=== PATIENT | male | born 1960 | race American Indian/Alaskan Native ===

== ENCOUNTER 2016-05-30 11:39 | Outpatient (CLI) | payer MEDICARE ==
[2016-05-30 11:59] LABS: Hematocrit 41.1 % (35.5-45.6); Hemoglobin 13.4 gm/dl (11.8-15.2); Mean Corpuscular HGB Conc 33 % (32-34); Mean Corpuscular Hemoglobin 29 pg (28-32); Mean Corpuscular Volume 91 fl (84-94); Platelet Count 263 K/mm3 (140-440); Red Blood Count 4.54 M/mm3 (3.65-5.03); Red Cell Distribution Width 14.3 % (13.2-15.2); White Blood Count 9.9 K/mm3 (4.5-11.0)
[2016-05-30 12:15] LABS: Alanine Aminotransferase 17 units/L (7-56); Albumin 4.4 g/dL (3.9-5); Albumin/Globulin Ratio 1.4 %; Alkaline Phosphatase 93 units/L (35-129); Anion Gap 22 mmol/L; BUN/Creatinine Ratio 11.42; Bilirubin,Total 0.4 mg/dL (0.1-1.2); Blood Urea Nitrogen 16 mg/dL (9-20); Calcium 8.3 mg/dL (8.4-10.2); Carbon Dioxide 24 mmol/L (22-30); Chloride 101.2 mmol/L (98-107); Cholesterol 193 mg/dL (50-199); Glucose 67 mg/dL (75-100); HDL Cholesterol 52 mg/dL (40-59); LDL Cholesterol,Direct 118 mg/dL (50-130); Potassium 3.4 mmol/L (3.6-5.0); Sodium 144 mmol/L (137-145); Total Protein 7.6 g/dL (6.3-8.2); Triglycerides 119 mg/dL (2-149)
== END 2016-05-30 11:40 | disposition home or self-care (01) ==
LOC: LAB 11:39
DX: I12.9 Hypertensive chronic kidney disease with stage 1 through stage 4 chronic kidney disease, or unspecified chronic kidney disease (principal); N18.3 Chronic kidney disease, stage 3 (moderate); E11.22 Type 2 diabetes mellitus with diabetic chronic kidney disease; D63.1 Anemia in chronic kidney disease; E78.1 Pure hyperglyceridemia; R06.83 Snoring; Z94.0 Kidney transplant status
CPT/HCPCS: 36415; 80053; 80061; 80197; 83036; 85027

== ENCOUNTER 2016-08-12 12:45 | Outpatient (CLI) | payer MEDICARE ==
[2016-08-12 14:13] LABS: Basophils % (Auto) 0.8 % (0.0-1.8); Eosinophils % (Auto) 4.6 % (0.0-4.3); Hematocrit 36.4 % (35.5-45.6); Hemoglobin 11.6 gm/dl (11.8-15.2); Mean Corpuscular HGB Conc 32 % (32-34); Mean Corpuscular Hemoglobin 28 pg (28-32); Mean Corpuscular Volume 87 fl (84-94); Platelet Count 270 K/mm3 (140-440); Red Blood Count 4.16 M/mm3 (3.65-5.03); Red Cell Distribution Width 14.8 % (13.2-15.2); White Blood Count 11.4 K/mm3 (4.5-11.0)
[2016-08-12 14:24] LABS: Alanine Aminotransferase 20 units/L (7-56); Albumin 4.1 g/dL (3.9-5); Albumin/Globulin Ratio 1.5 %; Alkaline Phosphatase 123 units/L (35-129); Anion Gap 18 mmol/L; BUN/Creatinine Ratio 12.85; Bilirubin,Total 0.3 mg/dL (0.1-1.2); Blood Urea Nitrogen 18 mg/dL (9-20); Calcium 6.9 mg/dL (8.4-10.2); Carbon Dioxide 24 mmol/L (22-30); Chloride 102.6 mmol/L (98-107); Glucose 109 mg/dL (75-100); Potassium 3.9 mmol/L (3.6-5.0); Sodium 141 mmol/L (137-145); Total Protein 6.9 g/dL (6.3-8.2)
[2016-08-12 14:44] LABS: Cholesterol 182 mg/dL (50-199); HDL Cholesterol 42 mg/dL (40-59); LDL Cholesterol,Direct 110 mg/dL (50-130); Triglycerides 150 mg/dL (2-149)
== END 2016-08-12 12:46 | disposition home or self-care (01) ==
LOC: LAB 12:45
PROVIDERS: ATTEND Specialist
DX: E11.65 Type 2 diabetes mellitus with hyperglycemia (principal); I10 Essential (primary) hypertension; E11.22 Type 2 diabetes mellitus with diabetic chronic kidney disease
CPT/HCPCS: 36415; 80053; 80061; 80197; 83036; 85025

== ENCOUNTER 2016-10-22 09:22 | Outpatient (CLI) | payer MEDICARE ==
[2016-10-22 09:43] LABS: Hemoglobin 11.8 gm/dl (11.8-15.2); Mean Corpuscular HGB Conc 32 % (32-34); Mean Corpuscular Hemoglobin 28 pg (28-32); Mean Corpuscular Volume 86 fl (84-94); Platelet Count 253 K/mm3 (140-440); Red Blood Count 4.29 M/mm3 (3.65-5.03); Red Cell Distribution Width 14.8 % (13.2-15.2); White Blood Count 9.7 K/mm3 (4.5-11.0)
[2016-10-22 10:05] LABS: Albumin 4.1 g/dL (3.9-5); Albumin/Globulin Ratio 1.5 %; Bilirubin,Total 0.3 mg/dL (0.1-1.2); Calcium 6.7 mg/dL (8.4-10.2); Chloride 100.9 mmol/L (98-107); Total Protein 6.8 g/dL (6.3-8.2)
== END 2016-10-22 09:23 | disposition home or self-care (01) ==
LOC: LAB 09:22
DX: I12.9 Hypertensive chronic kidney disease with stage 1 through stage 4 chronic kidney disease, or unspecified chronic kidney disease (principal); E11.22 Type 2 diabetes mellitus with diabetic chronic kidney disease; E11.21 Type 2 diabetes mellitus with diabetic nephropathy; E83.51 Hypocalcemia; N18.9 Chronic kidney disease, unspecified; D63.1 Anemia in chronic kidney disease; E78.1 Pure hyperglyceridemia; R06.83 Snoring
CPT/HCPCS: 36415; 80053; 80197; 85027

== ENCOUNTER 2017-04-20 08:49 | Outpatient (CLI) | payer MEDICARE ==
[2017-04-20 09:02] LABS: Mean Corpuscular HGB Conc 30 % (32-34); Mean Corpuscular Volume 73 fl (84-94); Platelet Count 403 K/mm3 (140-440); Red Blood Count 3.79 M/mm3 (3.65-5.03); Red Cell Distribution Width 17.3 % (13.2-15.2); White Blood Count 14.1 K/mm3 (4.5-11.0)
[2017-04-20 09:09] LABS: Hematocrit 27.6 % (35.5-45.6); Hemoglobin 8.2 gm/dl (11.8-15.2); Mean Corpuscular Hemoglobin 22 pg (28-32)
[2017-04-20 09:17] LABS: Albumin/Globulin Ratio 1.5 %; Bilirubin,Total 0.3 mg/dL (0.1-1.2); Calcium 6.6 mg/dL (8.4-10.2); Chloride 100.7 mmol/L (98-107); Potassium 3.9 mmol/L (3.6-5.0); Total Protein 6.7 g/dL (6.3-8.2)
[2017-04-20 09:35] LABS: Bilirubin,Urine NEG (Negative); Blood,Urine NEG (Negative); Ketones,Urine NEG (Negative); Leukocyte Esterase,Urine NEG (Negative); Mucus,Urine FEW /HPF; Nitrite,Urine NEG (Negative); Urobilinogen,Urine < 2.0 mg/dL (<2.0)
== END 2017-04-20 08:50 | disposition home or self-care (01) ==
LOC: LAB 08:49
DX: I13.2 Hypertensive heart and chronic kidney disease with heart failure and with stage 5 chronic kidney disease, or end stage renal disease (principal); N18.6 End stage renal disease; I50.9 Heart failure, unspecified; D63.1 Anemia in chronic kidney disease; E11.21 Type 2 diabetes mellitus with diabetic nephropathy; E11.22 Type 2 diabetes mellitus with diabetic chronic kidney disease; E83.51 Hypocalcemia; Z94.0 Kidney transplant status
CPT/HCPCS: 36415; 80053; 80197; 81001; 82043; 85027

== ENCOUNTER 2017-05-03 11:24 | Emergency (ER) | payer MEDICARE ==
[2017-05-03] MEDS ORDERED: NACL 0.9% 500 ML 500 ML IV ONE (12:06)
[2017-05-03 12:12] VITALS: BP 110/68
--- NOTE | 2017-05-03 13:22 | XRay Report ---
ROUTINE CHEST, TWO VIEWS: HISTORY: Sepsis. The trachea, heart, mediastinal contour, lung arzola and bony thorax are unremarkable. No significant change since 07/26/16. IMPRESSION: No acute cardiopulmonary process identified.
[2017-05-03 13:39] LABS: Basophils % (Auto) 1.3 % (0.0-1.8); Eosinophils % (Auto) 8.2 % (0.0-4.3); Mean Corpuscular HGB Conc 29 % (32-34); Mean Corpuscular Volume 72 fl (84-94); Platelet Count 339 K/mm3 (140-440); Red Cell Distribution Width 18.6 % (13.2-15.2); White Blood Count 14.8 K/mm3 (4.5-11.0)
[2017-05-03 13:52] LABS: Hematocrit 26.5 % (35.5-45.6); Hemoglobin 7.8 gm/dl (11.8-15.2); INR 1.93 (0.87-1.13); Mean Corpuscular Hemoglobin 21 pg (28-32)
[2017-05-03 14:00] LABS: Albumin 3.9 g/dL (3.9-5); Albumin/Globulin Ratio 1.5 %; Bilirubin,Total 0.4 mg/dL (0.1-1.2); Calcium 6.4 mg/dL (8.4-10.2); Chloride 102.4 mmol/L (98-107); Potassium 4.5 mmol/L (3.6-5.0); Total Protein 6.5 g/dL (6.3-8.2)
[2017-05-03 15:02] LABS: Bilirubin,Urine NEG (Negative); Blood,Urine NEG (Negative); Ketones,Urine NEG (Negative); Leukocyte Esterase,Urine NEG (Negative); Mucus,Urine FEW /HPF; Nitrite,Urine NEG (Negative); Urobilinogen,Urine < 2.0 mg/dL (<2.0)
== END 2017-05-03 21:45 | disposition left against medical advice (07) ==
LOC: ED 11:24
DX: R10.9 Unspecified abdominal pain (principal); Z53.21 Procedure and treatment not carried out due to patient leaving prior to being seen by health care provider
CPT/HCPCS: 36415; 71020; 80053; 81001; 82140; 82805; 82962; 83880; 85025; 85610; 87040; 87086; 93005; 93010

== ENCOUNTER 2017-06-17 11:27 | Outpatient (CLI) | payer MEDICARE ==
[2017-06-17 12:04] LABS: Hematocrit 34.3 % (35.5-45.6); Hemoglobin 10.7 gm/dl (11.8-15.2); Mean Corpuscular HGB Conc 31 % (32-34); Mean Corpuscular Volume 83 fl (84-94); Platelet Count 325 K/mm3 (140-440); Red Blood Count 4.13 M/mm3 (3.65-5.03)
[2017-06-17 12:08] LABS: Mean Corpuscular Hemoglobin 26 pg (28-32); Red Cell Distribution Width 29.1 % (13.2-15.2)
[2017-06-17 12:25] LABS: Creatinine,Urine 339.3 mg/dL (0.1-20.0); Microalbumin/Creatinine Ratio 10.6 ug/mg
[2017-06-17 12:33] LABS: Albumin 4.2 g/dL (3.9-5); Calcium 7.2 mg/dL (8.4-10.2); Magnesium 1.9 mg/dL (1.7-2.3)
== END 2017-06-17 11:28 | disposition home or self-care (01) ==
LOC: LAB 11:27
DX: I13.0 Hypertensive heart and chronic kidney disease with heart failure and stage 1 through stage 4 chronic kidney disease, or unspecified chronic kidney disease (principal); N18.9 Chronic kidney disease, unspecified; I50.9 Heart failure, unspecified; E11.22 Type 2 diabetes mellitus with diabetic chronic kidney disease; D63.1 Anemia in chronic kidney disease; E83.51 Hypocalcemia; E78.1 Pure hyperglyceridemia; R06.83 Snoring; Z94.0 Kidney transplant status
CPT/HCPCS: 36415; 80053; 80197; 82043; 83735; 85027

== ENCOUNTER 2017-09-16 07:51 | Outpatient (CLI) | payer MEDICARE ==
[2017-09-16 08:15] LABS: Bilirubin,Urine NEG (Negative); Blood,Urine NEG (Negative); Color,Urine Yellow (Yellow); Protein,Urine <15 mg/dL mg/dL (Negative); Urobilinogen,Urine < 2.0 mg/dL (<2.0)
[2017-09-16 08:24] LABS: Hematocrit 37.6 % (35.5-45.6); Hemoglobin 12.5 gm/dl (11.8-15.2); Mean Corpuscular HGB Conc 33 % (32-34); Mean Corpuscular Hemoglobin 29 pg (28-32); Mean Corpuscular Volume 87 fl (84-94); Platelet Count 268 K/mm3 (140-440); Red Blood Count 4.32 M/mm3 (3.65-5.03); Red Cell Distribution Width 16.3 % (13.2-15.2)
[2017-09-16 08:35] LABS: Albumin 4.1 g/dL (3.9-5); Calcium 7.3 mg/dL (8.4-10.2)
== END 2017-09-16 07:52 | disposition home or self-care (01) ==
LOC: LAB 07:51
DX: I13.0 Hypertensive heart and chronic kidney disease with heart failure and stage 1 through stage 4 chronic kidney disease, or unspecified chronic kidney disease (principal); I50.9 Heart failure, unspecified; N18.9 Chronic kidney disease, unspecified; E11.22 Type 2 diabetes mellitus with diabetic chronic kidney disease; E11.21 Type 2 diabetes mellitus with diabetic nephropathy; D63.1 Anemia in chronic kidney disease; E78.6 Lipoprotein deficiency; E83.51 Hypocalcemia; R80.0 Isolated proteinuria; Z94.0 Kidney transplant status
CPT/HCPCS: 36415; 80053; 80197; 81001; 85027

== ENCOUNTER 2017-12-14 10:27 | Outpatient (CLI) | payer MEDICARE ==
[2017-12-14 11:06] LABS: Hematocrit 39.3 % (35.5-45.6); Hemoglobin 13.5 gm/dl (11.8-15.2); Mean Corpuscular HGB Conc 34 % (32-34); Mean Corpuscular Hemoglobin 30 pg (28-32); Mean Corpuscular Volume 87 fl (84-94); Platelet Count 255 K/mm3 (140-440); Red Blood Count 4.51 M/mm3 (3.65-5.03); Red Cell Distribution Width 14.8 % (13.2-15.2)
[2017-12-14 11:31] LABS: BUN/Creatinine Ratio 14; Blood Urea Nitrogen 19 mg/dL (9-20); Calcium 8.1 mg/dL (8.4-10.2)
[2017-12-14 11:32] LABS: Alanine Aminotransferase 15 units/L (7-56); Albumin 4.4 g/dL (3.9-5); Chol/HDL Ratio 3.33 %; HDL Cholesterol 42 mg/dL (40-59); Hemolysis Index 6; LDL Cholesterol,Direct 90 mg/dL (50-130)
== END 2017-12-14 10:28 | disposition home or self-care (01) ==
LOC: LAB 10:27
DX: I13.0 Hypertensive heart and chronic kidney disease with heart failure and stage 1 through stage 4 chronic kidney disease, or unspecified chronic kidney disease (principal); E11.22 Type 2 diabetes mellitus with diabetic chronic kidney disease; N18.9 Chronic kidney disease, unspecified; I50.32 Chronic diastolic (congestive) heart failure; D63.1 Anemia in chronic kidney disease; E11.21 Type 2 diabetes mellitus with diabetic nephropathy; E11.65 Type 2 diabetes mellitus with hyperglycemia; E78.2 Mixed hyperlipidemia; E83.51 Hypocalcemia; R80.0 Isolated proteinuria; Z94.0 Kidney transplant status
CPT/HCPCS: 36415; 80053; 80061; 80197; 83036; 85027

== ENCOUNTER 2018-07-20 11:38 | Outpatient (CLI) | payer MEDICARE ==
[2018-07-20 12:05] LABS: Basophils # (Auto) 0.1 K/mm3 (0.0-0.1); Basophils % (Auto) 0.7 % (0.0-1.8); Eosinophils # (Auto) 1.8 K/mm3 (0.0-0.4); Eosinophils % (Auto) 14.9 % (0.0-4.3); Hematocrit 43.2 % (35.5-45.6); Hemoglobin 14.1 gm/dl (11.8-15.2); Lymphocytes # (Auto) 2.3 K/mm3 (1.2-5.4); Lymphocytes % (Auto) 19.3 % (13.4-35.0); Mean Corpuscular HGB Conc 33 % (32-34); Mean Corpuscular Volume 90 fl (84-94); Monocytes # (Auto) 1.4 K/mm3 (0.0-0.8); Monocytes % (Auto) 11.6 % (0.0-7.3); Platelet Count 267 K/mm3 (140-440); Red Blood Count 4.78 M/mm3 (3.65-5.03); Red Cell Distribution Width 14.7 % (13.2-15.2)
[2018-07-20 12:07] LABS: Bilirubin,Urine NEG (Negative); Blood,Urine NEG (Negative); Color,Urine Yellow (Yellow); Mucus,Urine FEW /HPF; Urobilinogen,Urine < 2.0 mg/dL (<2.0); WBC,Urine < 1.0 /HPF (0.0-6.0)
[2018-07-20 12:24] LABS: Creatinine,Urine 308.7 mg/dL (0.1-20.0)
[2018-07-20 12:32] LABS: Albumin 4.1 g/dL (3.9-5); Calcium 7.8 mg/dL (8.4-10.2); Uric Acid 6.4 mg/dL (3.5-7.6)
== END 2018-07-20 11:39 | disposition home or self-care (01) ==
LOC: LAB 11:38
PROVIDERS: ATTEND Internal Medicine Nephrology
DX: E11.21 Type 2 diabetes mellitus with diabetic nephropathy (principal); I13.0 Hypertensive heart and chronic kidney disease with heart failure and stage 1 through stage 4 chronic kidney disease, or unspecified chronic kidney disease; I50.32 Chronic diastolic (congestive) heart failure; E11.22 Type 2 diabetes mellitus with diabetic chronic kidney disease; N18.9 Chronic kidney disease, unspecified; D63.1 Anemia in chronic kidney disease; R80.0 Isolated proteinuria; E83.51 Hypocalcemia; Z94.0 Kidney transplant status
CPT/HCPCS: 36415; 80053; 80197; 81001; 82043; 82306; 83970; 84550; 85025

== ENCOUNTER 2018-08-02 15:04 | Outpatient (CLI) | payer MEDICARE | END 2018-08-02 15:05 | disposition home or self-care (01) | LOC: LAB 15:04 | PROVIDERS: ATTEND Internal Medicine Nephrology | DX: E11.21 Type 2 diabetes mellitus with diabetic nephropathy (principal); E83.51 Hypocalcemia; I11.0 Hypertensive heart disease with heart failure; I50.32 Chronic diastolic (congestive) heart failure; E78.1 Pure hyperglyceridemia; R80.0 Isolated proteinuria; E78.5 Hyperlipidemia, unspecified; E78.00 Pure hypercholesterolemia, unspecified; K21.9 Gastro-esophageal reflux disease without esophagitis; Z94.0 Kidney transplant status | CPT/HCPCS: 36415; 80197 ==

== ENCOUNTER 2018-11-01 13:09 | Outpatient (CLI) | payer MEDICARE | END 2018-11-01 13:10 | disposition home or self-care (01) | LOC: LAB 13:09 | PROVIDERS: ATTEND Internal Medicine Nephrology | DX: E11.21 Type 2 diabetes mellitus with diabetic nephropathy (principal); I11.0 Hypertensive heart disease with heart failure; I50.32 Chronic diastolic (congestive) heart failure; E83.51 Hypocalcemia; E78.1 Pure hyperglyceridemia; D63.1 Anemia in chronic kidney disease; E66.9 Obesity, unspecified; E78.00 Pure hypercholesterolemia, unspecified; K21.9 Gastro-esophageal reflux disease without esophagitis; Z94.0 Kidney transplant status; Z71.3 Dietary counseling and surveillance | CPT/HCPCS: 36415; 80197 ==

== ENCOUNTER 2019-01-19 10:57 | Outpatient (CLI) | payer MEDICARE ==
[2019-01-19 11:17] LABS: Basophils # (Auto) 0.1 K/mm3 (0.0-0.1); Basophils % (Auto) 1.1 % (0.0-1.8); Eosinophils # (Auto) 1.2 K/mm3 (0.0-0.4); Eosinophils % (Auto) 10.2 % (0.0-4.3); Hematocrit 39.9 % (35.5-45.6); Hemoglobin 13.2 gm/dl (11.8-15.2); Lymphocytes # (Auto) 1.8 K/mm3 (1.2-5.4); Lymphocytes % (Auto) 15.9 % (13.4-35.0); Mean Corpuscular HGB Conc 33 % (32-34); Mean Corpuscular Volume 91 fl (84-94); Monocytes # (Auto) 1.1 K/mm3 (0.0-0.8); Monocytes % (Auto) 9.9 % (0.0-7.3); Platelet Count 277 K/mm3 (140-440); Red Cell Distribution Width 14.4 % (13.2-15.2)
[2019-01-19 11:44] LABS: Albumin 4.1 g/dL (3.9-5)
[2019-01-19 11:49] LABS: Bilirubin,Urine NEG (Negative); Blood,Urine NEG (Negative); Color,Urine Yellow (Yellow); Urobilinogen,Urine < 2.0 mg/dL (<2.0)
[2019-01-19 12:04] LABS: Creatinine,Urine 304.5 mg/dL (0.1-20.0); Protein/Creatinine Ratio,Urine 0.13
== END 2019-01-20 09:18 | disposition home or self-care (01) ==
LOC: LAB 10:57
PROVIDERS: ATTEND Internal Medicine Nephrology
DX: E11.21 Type 2 diabetes mellitus with diabetic nephropathy (principal); I11.0 Hypertensive heart disease with heart failure; I50.32 Chronic diastolic (congestive) heart failure; D63.1 Anemia in chronic kidney disease; E66.9 Obesity, unspecified; Z71.3 Dietary counseling and surveillance; R80.0 Isolated proteinuria; Z94.0 Kidney transplant status
CPT/HCPCS: 36415; 80048; 80197; 81001; 82040; 82570; 83735; 83970; 84100; 84156; 85025

== ENCOUNTER 2019-02-23 10:17 | Outpatient (CLI) | payer MEDICARE ==
--- NOTE | 2019-02-23 12:46 | Ultrasound Report ---
ULTRASOUND BLADDER INDICATION / CLINICAL INFORMATION: Urinary retention. COMPARISON: None available. FINDINGS: URINARY BLADDER: No significant abnormality. PRE-VOID VOLUME: 88.9 ml. POST-VOID VOLUME: 9.9 ml. ADDITIONAL FINDINGS: None. IMPRESSION: Minimal post void residual urine volume. POST-VOID RESIDUAL (PVR) GUIDELINES < 50 ml = Normal PVR < 100 ml = Normal PVR in patients > 65 > 100 ml = Consider elevated PVR > 200-300 ml = Large PVR Signer Name: Milad Morris MD Signed: 02/23/2019 12:42 PM Workstation Name: [id number]
--- NOTE | 2019-02-23 15:25 | Ultrasound Report ---
ULTRASOUND RENAL INDICATION / CLINICAL INFORMATION: Z94.0)Kidney transplant status. COMPARISON: None available. FINDINGS: The the [place] kidneys are atrophic and echogenic measuring 5.5 cm on the right and 4.9 cm on the left. N o focal lesion or hydronephrosis in the the [place] kidneys is appreciated. A transplant kidney is identified in the right iliac fossa measuring 10.4 x 6.4 x 5.5 cm. Renal echot exture appears normal. There is good cortical medullary differentiation. No evidence for focal renal lesion, hydronephrosis or perinephric fluid. Color Doppler interrogation demonstrates good perfusion to the transplant kidney. Additional findings: The technologist noted a rounded masslike lesion in the left upper quadrant supe rior and medial to the spleen measuring 5.9 x 7.5 x 6.2 cm. The etiology of this is unclear. Consider correlation with CT. IMPRESSION: Unremarkable sonographic appearance of the renal transplant. Atrophic the [place] kidneys. Questionable left upper quadrant masslike lesion. Signer Name: Foreign Zhong Jr, MD Signed: 02/23/2019 3:20 PM Workstation Name: [id number]
== END 2019-02-23 10:18 | disposition home or self-care (01) ==
LOC: US 10:17
PROVIDERS: ATTEND Internal Medicine Nephrology
DX: Z94.0 Kidney transplant status (principal)
CPT/HCPCS: 76770; 76857

== ENCOUNTER 2019-03-03 10:22 | Outpatient (CLI) | payer MEDICARE ==
[2019-03-03 11:10] LABS: Basophils # (Auto) 0.1 K/mm3 (0.0-0.1); Basophils % (Auto) 1.3 % (0.0-1.8); Eosinophils # (Auto) 1.1 K/mm3 (0.0-0.4); Eosinophils % (Auto) 13.1 % (0.0-4.3); Hematocrit 42.3 % (35.5-45.6); Hemoglobin 13.8 gm/dl (11.8-15.2); Lymphocytes # (Auto) 1.4 K/mm3 (1.2-5.4); Lymphocytes % (Auto) 15.5 % (13.4-35.0); Mean Corpuscular HGB Conc 33 % (32-34); Mean Corpuscular Volume 91 fl (84-94); Monocytes # (Auto) 0.9 K/mm3 (0.0-0.8); Monocytes % (Auto) 9.9 % (0.0-7.3); Red Blood Count 4.64 M/mm3 (3.65-5.03)
[2019-03-03 11:34] LABS: Calcium 7.8 mg/dL (8.4-10.2)
[2019-03-03 11:35] LABS: Albumin 4.3 g/dL (3.9-5)
[2019-03-03 11:38] LABS: Bacteria,Urine 1+ /HPF (Negative); Bilirubin,Urine NEG (Negative); Blood,Urine NEG (Negative); Color,Urine Yellow (Yellow); Mucus,Urine FEW /HPF; Urobilinogen,Urine < 2.0 mg/dL (<2.0)
[2019-03-03 14:30] LABS: Platelet Count 219 K/mm3 (140-440)
== END 2019-03-03 10:23 | disposition home or self-care (01) ==
LOC: LAB 10:22
PROVIDERS: ATTEND Internal Medicine Nephrology
DX: E11.21 Type 2 diabetes mellitus with diabetic nephropathy (principal); I11.0 Hypertensive heart disease with heart failure; I50.32 Chronic diastolic (congestive) heart failure; E83.51 Hypocalcemia; R80.0 Isolated proteinuria; D63.1 Anemia in chronic kidney disease; K21.9 Gastro-esophageal reflux disease without esophagitis; E66.9 Obesity, unspecified; Z71.3 Dietary counseling and surveillance; Z94.0 Kidney transplant status
CPT/HCPCS: 36415; 80048; 80197; 81001; 82040; 84100; 85025; 89050

== ENCOUNTER 2019-06-02 09:28 | Outpatient (CLI) | payer MEDICARE ==
[2019-06-02 10:01] LABS: Hematocrit 40.5 % (35.5-45.6); Hemoglobin 13.3 gm/dl (11.8-15.2); Mean Corpuscular HGB Conc 33 % (32-34); Mean Corpuscular Volume 91 fl (84-94); Red Blood Count 4.45 M/mm3 (3.65-5.03); Red Cell Distribution Width 15.4 % (13.2-15.2)
[2019-06-02 10:06] LABS: Bilirubin,Urine NEG (Negative); Blood,Urine NEG (Negative); Color,Urine Yellow (Yellow); Urobilinogen,Urine < 2.0 mg/dL (<2.0)
[2019-06-02 10:26] LABS: Albumin 3.8 g/dL (3.9-5); Calcium 7.5 mg/dL (8.4-10.2)
[2019-06-02 10:53] LABS: Total Cells Counted 100
[2019-06-02 10:54] LABS: Basophils % (Manual) 0 % (0.0-1.8); Giant Platelets Few
[2019-06-02 10:55] LABS: Platelet Estimate Consistent w Auto
[2019-06-02 10:58] LABS: Platelet Count 209 K/mm3 (140-440)
== END 2019-06-02 09:29 | disposition home or self-care (01) ==
LOC: LAB 09:28
PROVIDERS: ATTEND Internal Medicine Nephrology
DX: I11.0 Hypertensive heart disease with heart failure (principal); I50.9 Heart failure, unspecified; E83.51 Hypocalcemia; R80.0 Isolated proteinuria; I50.32 Chronic diastolic (congestive) heart failure; Z71.3 Dietary counseling and surveillance
CPT/HCPCS: 36415; 80048; 80197; 81001; 82040; 83970; 84100; 85007; 85025

== ENCOUNTER 2019-07-25 11:08 | Outpatient (CLI) | payer MEDICARE ==
[2019-07-25 11:34] LABS: Basophils # (Auto) 0.1 K/mm3 (0.0-0.1); Basophils % (Auto) 1.3 % (0.0-1.8); Eosinophils # (Auto) 1.6 K/mm3 (0.0-0.4); Hematocrit 40.1 % (35.5-45.6); Hemoglobin 13.1 gm/dl (11.8-15.2); Lymphocytes % (Auto) 17.3 % (13.4-35.0); Mean Corpuscular HGB Conc 33 % (32-34); Mean Corpuscular Volume 91 fl (84-94); Monocytes % (Auto) 8.8 % (0.0-7.3); Red Cell Distribution Width 14.8 % (13.2-15.2)
[2019-07-25 11:36] LABS: Bilirubin,Urine NEG (Negative); Blood,Urine NEG (Negative); Color,Urine Yellow (Yellow); Mucus,Urine FEW /HPF; RBC,Urine < 1.0 /HPF (0.0-6.0); Urobilinogen,Urine < 2.0 mg/dL (<2.0)
[2019-07-25 11:43] LABS: Platelet Count 150 K/mm3 (140-440)
[2019-07-25 11:58] LABS: Albumin 3.9 g/dL (3.9-5); Calcium 7.7 mg/dL (8.4-10.2)
[2019-07-28 13:57] LABS: Vitamin D, 25-OH, D2 <4 ng/mL
== END 2019-07-25 11:09 | disposition home or self-care (01) ==
LOC: LAB 11:08
PROVIDERS: ATTEND Internal Medicine Nephrology
DX: I11.0 Hypertensive heart disease with heart failure (principal); I50.32 Chronic diastolic (congestive) heart failure; N18.9 Chronic kidney disease, unspecified; D63.1 Anemia in chronic kidney disease; R80.0 Isolated proteinuria; E66.9 Obesity, unspecified; Z94.0 Kidney transplant status; Z73.9 Problem related to life management difficulty, unspecified
CPT/HCPCS: 36415; 80053; 80197; 81001; 82306; 85025

== ENCOUNTER 2022-01-09 09:06 | Outpatient (CLI) | payer MEDICARE ==
--- NOTE | 2022-01-09 12:40 | Vascular Lab Report ---
Renal Doppler Ultrasound HISTORY: Z94.0. Follow-up of renal transplant TECHNIQUE: Grayscale and Doppler imaging performed. COMPARISON: Renal ultrasound from 02/23/2019 FINDINGS: Right pelvic renal transplant measures 10.3 cm in maximal dimension with normal appearance. No mass, cyst, or hydronephrosis. Peak systolic velocity in the distal renal artery is 115 cm/s. Resistive ind ices range from 0.76-0.82. Maximal peak systolic velocity in the infrarenal abdominal aorta is 88 cm/s. IMPRESSION: Unremarkable right renal pelvic renal transplant. Signer Name: Tae Naranjo MD Signed: 01/09/2022 12:36 PM Workstation Name: [id number]
== END 2022-01-09 09:07 | disposition home or self-care (01) ==
LOC: VAS 09:06
PROVIDERS: ATTEND Internal Medicine Nephrology
DX: Z94.0 Kidney transplant status (principal)
CPT/HCPCS: 93975